=== PATIENT | female | born 1955 | race African-American/Black ===

== ENCOUNTER → 2018-08-07 | Day surgery (SDC) | payer OTHER ==
--- NOTE | 2018-08-08 17:57 | OP ---
DATE OF OPERATION: 08/07/2018 PREOPERATIVE DIAGNOSIS: Left breast mass 1 o'clock to 2 o'clock, 8-10 cm from the nipple and left axillary suspicious lymph node. POSTOPERATIVE DIAGNOSIS: Left breast mass 1 o'clock to 2 o'clock, 8-10 cm from the nipple and left axillary suspicious lymph node. PROCEDURE: Left ultrasound-guided core biopsies of left axillary node and left breast mass with clip placement. ANESTHESIA: Local. ATTENDING SURGEON: Kirk Smith MD ESTIMATED BLOOD LOSS: Minimal. COMPLICATIONS: None. DESCRIPTION OF PROCEDURE: The patient was made aware of the risks and benefits of the procedure and consented. She was placed in a supine position. Under sterile conditions with 1% lidocaine for local anesthesia, a small sean was made in the left axilla. Using a 13-gauge suction biopsy device via an inferior approach, multiple cores were obtained and submitted to Pathology. Likewise, under ultrasound guidance, a Hydroclip barrel-shaped clip was placed into the residual lymph node. Well tolerated by patient. Steri-Strips and a sterile bandage was applied. The left breast mass was then approached. Under sterile conditions with 1% lidocaine for local anesthesia, a small sean was made in the skin. Using a 13-gauge suction biopsy device via lateral approach under ultrasound guidance, multiple cores were obtained and submitted to Pathology. Likewise, under ultrasound guidance, a U-shaped clip was placed into the biopsy resolution. Well tolerated by patient. Steri-Strips and a sterile bandage was applied. We will contact her with the results. We will contact her with results. KIRK SMITH M.D. [id number]
--- NOTE | 2018-08-09 16:21 | PATH ---
Surgical Pathology Report Patient Name: BRET SU [facility]. Rec. #: [id number] /Age/Gender: 1955 (Age: 63) / F Account: [id number] Location: [facility] Taken: 08/07/2018 Received: 08/08/2018 Reported: 08/09/2018 Physicians: Jaciel Alvarado M.D. Specimen(s) Received A: LEFT BREAST 1-2:00 8-10 CM FN CORE BX B: LEFT AXILLARY LYMPH NODE CORE BX Clinical History left breast and left axillary node biopsy Final Diagnosis A. BREAST, LEFT, 1:00-2:00, 8-10 CM FN, CORE BIOPSY: INVASIVE LOBULAR CARCINOMA, PLEOMORPHIC TYPE WITH HISTIOCYTOID FEATURES, MEASURING AT LEAST 1.1 CM IN GREATEST DIMENSION IN THIS MATERIAL. (SEE NOTE) FOCAL DUCTAL CARCINOMA IN SITU (DCIS), CRIBRIFORM TYPE, LOW NUCLEAR GRADE. Note: Immunostains performed at [facility] show the following results: the tumor cells are positive for AE1/3 and negative for E-Cadherin. These findings support the diagnosis. B. LYMPH NODE, LEFT AXILLARY, CORE BIOPSY: METASTATIC CARCINOMA INVOLVING LYMPH NODE. Results of ER and LA studies performed on block A at [facility] are as follows: ER (clone [id number] mouse monoclonal antibody by [employer]): ~60 % nuclear staining with moderate intensity (positive). LA (clone16 mouse monoclonal antibody by [employer]): 0 % nuclear staining intensity (negative). Results of Her2 & Ki67 studies will be reported separately in an addendum. Positive and negative controls (internal if applicable) show appropriate results. Formalin fixation time is within current ASCO/CAP recommendations for ER, LA and Her2 testing. Time to formalin fixation (cold ischemic time) is not given. Electronically Signed Jenae Villanueva M.D. Addendum Reported: 08/14/2018 Addendum Diagnosis Results of Her2 (IHC) & Ki-67 studies performed at [place], [place] ([id number]) are as follows: Her2 IHC (EP3 from [employer], formerly known as [id number], using Peter Polymer Refine detection kit):0 (negative). Ki-67: 5-7% (low proliferative index). Positive and negative controls (internal if applicable) show appropriate results. Jenae Villanueva M.D. Addendum Reported: 09/25/2018 Addendum Diagnosis Results of ER and LA studies performed on block B (left axillary lymph node) at [facility] are as follows: ER (clone [id number] mouse monoclonal antibody by [employer]): ~80 % nuclear staining with moderate to strong intensity (Positive). LA (clone16 mouse monoclonal antibody by [employer]): 0 % nuclear staining (Negative). Results of Her2 (IHC) & Ki-67 studies performed on block B at [place], [place] ([id number]) are as follows: Her2 IHC (EP3 from [employer], formerly known as [id number], using Peter Polymer Refine detection kit):1+ (negative). Ki-67: ~25% (intermediate proliferative index). Positive and negative controls (internal if applicable) show appropriate results. Formalin fixation and cold ischemic times are within current ASCO/CAP recommendations for ER, LA and Her2 testing. Jenae Villanueva M.D. Gross Description A. Received in formalin labeled "left breast biopsy 1:00-2:00, 8-10 cmfn," is a 1.6 x 0.9 x 0.2 cm aggregate of multiple watts-yellow, irregular to cylindrical portions of fibroadipose tissue admixed with blood clot. The formalin is filtered and the specimen is entirely submitted in one cassette. B. Received in formalin labeled "left axillary lymph node," is a 2.3 x 1.7 x 0.3 cm aggregate of multiple watts-yellow, irregular to cylindrical portions of fibroadipose tissue. The formalin is filtered and the specimen is entirely submitted in one cassette. Time to formalin fixation: Not given (presumed immediate) Total formalin fixation time: Approximately 26 hours 08/08/201808/08/2018
== END | disposition home or self-care (01) ==
LOC: FRADUS-SUR 13:20
PROVIDERS: ATTEND Surgery Surgical Oncology
PROC: 0HBU3ZX Excision of Left Breast, Percutaneous Approach, Diagnostic (ICD-10-PCS; principal; 2018-08-07)
PROC: 07B63ZX Excision of Left Axillary Lymphatic, Percutaneous Approach, Diagnostic (ICD-10-PCS; 2018-08-07)
PROC: BH47ZZZ Ultrasonography of Upper Extremity (ICD-10-PCS; 2018-08-07)
DX: C50.912 Malignant neoplasm of unspecified site of left female breast (principal); Z17.0 Estrogen receptor positive status [ER+]; C77.3 Secondary and unspecified malignant neoplasm of axilla and upper limb lymph nodes; N63.21 Unspecified lump in the left breast, upper outer quadrant; R59.0 Localized enlarged lymph nodes
CPT/HCPCS: 19083; 76942-TC; 87899; 88305-TC; 88341-TC; 88342-TC; A4648

== ENCOUNTER 2018-09-13 07:30 | Day surgery (SDC) | payer OTHER ==
[2018-09-12 18:10] VITALS: BMI 22.7
[2018-09-13 08:04] VITALS: TEMP 97.4
[2018-09-13 08:06] LABS: BASO % 0.9 % (0-2.0); EOS % 0.8 % (0-4.5); HEMATOCRIT 42.2 % (32.4-45.2); HEMOGLOBIN 13.8 GM/dL (10.7-15.3); LYMPH % 26.4 % (8-40); MCH 30.3 pg (25.7-33.7); MCHC 32.8 g/dl (32.0-36.0); MEAN CELL VOLUME 92.4 fl (80-96); MEAN PLT VOLUME 7.4 fl (7.5-11.1); MONO % 8.4 % (3.8-10.2); NEUT % 63.5 % (42.8-82.8); PLATELET COUNT 281 K/MM3 (134-434); RBC 4.57 M/mm3 (3.60-5.2); WHITE BLOOD COUNT 7.7 K/mm3 (4.0-10.0)
[2018-09-13 08:18] LABS: INR 1.01 (0.83-1.09); PROTHROMBIN TIME (PATIENT) 11.9 SEC (9.7-13.0)
[2018-09-13 13:24] VITALS: BP 126/77; PULSE 71
== END 2018-09-13 16:39 | disposition home or self-care (01) ==
LOC: JRADIR 07:30
PROVIDERS: ATTEND Internal Medicine Hematology & Oncology
PROC: 0JH63XZ Insertion of Tunneled Vascular Access Device into Chest Subcutaneous Tissue and Fascia, Percutaneous Approach (ICD-10-PCS; principal; 2018-09-13)
DX: C50.919 Malignant neoplasm of unspecified site of unspecified female breast (principal)
CPT/HCPCS: 36561; C1788; 36415; 77001-TC-FY; 85025; 85610

== ENCOUNTER 2018-09-15 07:22 | Day surgery (SDC) | payer OTHER | END 2018-09-15 15:35 | disposition home or self-care (01) | LOC: JONCCHEMO 07:22 → J7W 10:38 → JONCCHEMO 15:35 ==

== ENCOUNTER 2018-09-16 11:30 | Day surgery (SDC) | payer OTHER | END 2018-09-16 14:24 | disposition home or self-care (01) | LOC: JONCCHEMO 11:30 → J7W 11:30 → JONCCHEMO 14:24 ==

== ENCOUNTER 2018-09-29 06:49 | Day surgery (SDC) | payer OTHER ==
[2018-09-29] MEDS ORDERED: SODIUM CHLORIDE 250 ML IV ONE ×2 (09:00→11:00)
[2018-09-29 09:23] LABS: BASO % 0.4 % (0-2.0); EOS % 0.1 % (0-4.5); HEMATOCRIT 38.9 % (32.4-45.2); HEMOGLOBIN 12.8 GM/dL (10.7-15.3); LYMPH % 13.7 % (8-40); MCH 30.2 pg (25.7-33.7); MEAN CELL VOLUME 91.4 fl (80-96); MONO % 8.1 % (3.8-10.2); NEUT % 77.7 % (42.8-82.8); PLATELET COUNT 156 K/MM3 (134-434); RBC 4.25 M/mm3 (3.60-5.2); RDW 12.8 % (11.6-15.6); WHITE BLOOD COUNT 13.1 K/mm3 (4.0-10.0)
[2018-09-29] MEDS ORDERED: FOSAPREPITANT DIMEGLUMINE 150 MG in SODIUM CHLORIDE 145 ML IVPB ONE (09:30)
[2018-09-29] MEDS ORDERED: PALONOSETRON HCL 0.25 MG/5 ML VIAL IVPUSH ONE (09:30)
[2018-09-29] MEDS ORDERED: DEXAMETHASONE SODIUM PHOSPHATE 10 MG in SODIUM CHLORIDE 50 ML IVPB ONE (09:30)
[2018-09-29 09:49] LABS: ALBUMIN 3.5 g/dl (3.4-5.0); BILIRUBIN,TOTAL 0.2 mg/dL (0.2-1); BLOOD UREA NITROGEN 14.6 mg/dL (7-18); CREATININE 1.1 mg/dL (0.55-1.3); MAGNESIUM 2.5 mg/dL (1.8-2.4); POTASSIUM 3.8 mmol/L (3.5-5.1); TOT PROT 6.5 g/dl (6.4-8.2)
[2018-09-29] MEDS ORDERED: SODIUM CHLORIDE IV ONE (10:00)
[2018-09-29] MEDS ORDERED: DOXORUBICIN HCL IV ONE (10:00)
[2018-09-29] MEDS ORDERED: SODIUM CHLORIDE IVPB ONE (10:30)
[2018-09-29] MEDS ORDERED: CYCLOPHOSPHAMIDE IVPB ONE (10:30)
[2018-09-29 10:40] LABS: ANISOCYTOSIS 0; MACROCYTOSIS 0; PLATELET ESTIMATE DECREASED
[2018-09-29 14:10] VITALS: TEMP 97.8
[2018-09-29] MEDS ORDERED: PORTA CATH FLUSH 10 ML IVPUSH ONE (14:10)
[2018-09-29 15:20] VITALS: BP 136/74; PULSE 69
== END 2018-09-29 15:22 | disposition home or self-care (01) ==
LOC: JONCCHEMO 06:49 → J7W 10:34 → JONCCHEMO 15:22
PROVIDERS: ATTEND Internal Medicine Hematology & Oncology
DX: Z51.11 Encounter for antineoplastic chemotherapy (principal); C50.919 Malignant neoplasm of unspecified site of unspecified female breast
CPT/HCPCS: 36415; 80053; 83735; 85025; 96361; 96367; 96375; 96413; 96417; J1453; J2469; J9070

== ENCOUNTER 2018-09-30 14:04 | Day surgery (SDC) | payer OTHER ==
[~2018-09-30 14:04] MED LIST: PEGFILGRASTIM 6 MG/0.6 ML DISP.SYRIN SQ ONE
[2018-09-30 15:27] VITALS: BP 119/62; PULSE 69; TEMP 98
== END 2018-09-30 15:45 | disposition home or self-care (01) ==
LOC: JONCCHEMO 14:04 → J7W 14:05 → JONCCHEMO 15:45
PROVIDERS: ATTEND Internal Medicine Hematology & Oncology
PROC: 3E013GC Introduction of Other Therapeutic Substance into Subcutaneous Tissue, Percutaneous Approach (ICD-10-PCS; principal; 2018-09-30)
DX: C50.919 Malignant neoplasm of unspecified site of unspecified female breast (principal); Z76.89 Persons encountering health services in other specified circumstances
CPT/HCPCS: J2505

== ENCOUNTER 2018-10-13 08:15 | Day surgery (SDC) | payer OTHER ==
[2018-10-13] MEDS ORDERED: SODIUM CHLORIDE 250 ML IV ONE ×2 (09:00→11:00)
[2018-10-13] MEDS ORDERED: FOSAPREPITANT DIMEGLUMINE 150 MG in SODIUM CHLORIDE 145 ML IVPB ONE (09:30)
[2018-10-13] MEDS ORDERED: PALONOSETRON HCL 0.25 MG/5 ML VIAL IVPUSH ONE (09:30)
[2018-10-13] MEDS ORDERED: DEXAMETHASONE SODIUM PHOSPHATE 10 MG in SODIUM CHLORIDE 50 ML IVPB ONE (09:30)
[2018-10-13] MEDS ORDERED: DOXORUBICIN HCL IV ONE (10:00)
[2018-10-13] MEDS ORDERED: SODIUM CHLORIDE IV ONE (10:00)
[2018-10-13 10:28] LABS: BASO % 0.3 % (0-2.0); HEMATOCRIT 35.7 % (32.4-45.2); HEMOGLOBIN 11.6 GM/dL (10.7-15.3); LYMPH % 12.9 % (8-40); MCHC 32.6 g/dl (32.0-36.0); MEAN CELL VOLUME 92.1 fl (80-96); MEAN PLT VOLUME 7.5 fl (7.5-11.1); MONO % 8.8 % (3.8-10.2); PLATELET COUNT 302 K/MM3 (134-434); RBC 3.87 M/mm3 (3.60-5.2); RDW 13.2 % (11.6-15.6); WHITE BLOOD COUNT 12.4 K/mm3 (4.0-10.0)
[2018-10-13 10:30] LABS: ALBUMIN 3.6 g/dl (3.4-5.0); BILIRUBIN,DIRECT 0.1 mg/dL (0.0-0.2); BILIRUBIN,TOTAL 0.3 mg/dL (0.2-1); BLOOD UREA NITROGEN 11.6 mg/dL (7-18); CALCIUM 8.9 mg/dL (8.5-10.1); CREATININE 1.1 mg/dL (0.55-1.3); MAGNESIUM 2.4 mg/dL (1.8-2.4); TOT PROT 6.6 g/dl (6.4-8.2)
[2018-10-13] MEDS ORDERED: CYCLOPHOSPHAMIDE INJECTION 1,040 MG in SODIUM CHLORIDE 250 ML IVPB ONE (10:30)
[2018-10-13] MEDS ORDERED: CYCLOPHOSPHAMIDE IVPB ONE (11:30)
[2018-10-13] MEDS ORDERED: SODIUM CHLORIDE IVPB ONE (11:30)
[2018-10-13 16:03] VITALS: TEMP 96.9
[2018-10-13 16:12] VITALS: BP 102/65; PULSE 64
[2018-10-13] MEDS ORDERED: PORTA CATH FLUSH 10 ML IVPUSH ONE (16:13)
== END 2018-10-13 15:45 | disposition home or self-care (01) ==
LOC: JONCCHEMO 08:15 → J7W 10:48 → JONCCHEMO 15:45
PROVIDERS: ATTEND Internal Medicine Hematology & Oncology
DX: Z51.11 Encounter for antineoplastic chemotherapy (principal); C50.919 Malignant neoplasm of unspecified site of unspecified female breast
CPT/HCPCS: 36415; 80053; 80076; 83735; 85025; 96361; 96367; 96375; 96413; 96417; J1453; J2469; J9070

== ENCOUNTER 2018-10-14 09:27 | Day surgery (SDC) | payer OTHER ==
[2018-10-14 11:05] VITALS: BP 115/63; PULSE 80; TEMP 97.1
== END 2018-10-14 14:29 | disposition home or self-care (01) ==
LOC: J7W 09:27 → JONCCHEMO 09:27
PROVIDERS: ATTEND Internal Medicine Hematology & Oncology
PROC: 3E013GC Introduction of Other Therapeutic Substance into Subcutaneous Tissue, Percutaneous Approach (ICD-10-PCS; principal; 2018-10-14)
DX: C50.919 Malignant neoplasm of unspecified site of unspecified female breast (principal); Z76.89 Persons encountering health services in other specified circumstances
CPT/HCPCS: J2505

== ENCOUNTER 2018-10-20 06:20 | Day surgery (SDC) | payer OTHER ==
[2018-10-20] MEDS ORDERED: SODIUM CHLORIDE 500 ML IV STA (10:20)
[2018-10-20 10:24] LABS: HEMOGLOBIN 10.3 GM/dL (10.7-15.3)
[2018-10-20 10:48] LABS: ALBUMIN 3.5 g/dl (3.4-5.0); BILIRUBIN,TOTAL 0.6 mg/dL (0.2-1); BLOOD UREA NITROGEN 16.4 mg/dL (7-18); CALCIUM 8.7 mg/dL (8.5-10.1); CREATININE 0.9 mg/dL (0.55-1.3); POTASSIUM 3.9 mmol/L (3.5-5.1); TOT PROT 6.2 g/dl (6.4-8.2)
[2018-10-20 10:53] LABS: BASO % 1.3 % (0-2.0); EOS % 0.4 % (0-4.5); HEMATOCRIT 30.4 % (32.4-45.2); LYMPH % 25.8 % (8-40); MCH 30.9 pg (25.7-33.7); MCHC 33.9 g/dl (32.0-36.0); MEAN CELL VOLUME 91.2 fl (80-96); MEAN PLT VOLUME 8.8 fl (7.5-11.1); NEUT % 67.5 % (42.8-82.8); PLATELET COUNT 146 K/MM3 (134-434); RBC 3.33 M/mm3 (3.60-5.2); RDW 13.7 % (11.6-15.6)
[2018-10-20] MEDS ORDERED: BACITRACIN 15 GM TUBE TOPICAL OINTMENT TP ONE (11:30)
[2018-10-20 13:52] LABS: ANISOCYTOSIS 1+; MACROCYTOSIS 0; PLATELET ESTIMATE NORMAL
[2018-10-20 14:59] VITALS: TEMP 97.9
[2018-10-20 15:03] VITALS: BP 115/74; PULSE 64
[2018-10-20] MEDS ORDERED: PORTA CATH FLUSH 10 ML IVPUSH ONE (15:15)
--- NOTE | 2018-10-20 19:10 | HP ---
Satellite H - Chief Complaint Chief Complaint: Here for follow up of after C3 AC. No fevers/ cough/ abdominal pain/diarrhea/urinary symptoms History Source: Patient Limitations to Obtaining History: No Limitations - Past Medical History Allergies/Adverse Reactions: Allergies Allergy/AdvReac Type Severity Reaction Status Date / Time No Known Allergies Allergy Verified 09/13/18 08:06 - Current Medications Current Medications: Home Medications Medication Instructions Recorded Compazine 10 mg PO ASDIR PRN 10/13/18 Ondansetron 8 mg PO PRN PRN 10/13/18 Pantoprazole Sodium 40 mg PO DAILY 10/13/18 Loperamide HCl [Loperamide] 2 mg PO PRN 10/20/18 Satellite Physical Exam - Physical Examination Vital Signs: Vital Signs Period Temp Pulse Resp BP Sys/Marcus Pulse Ox Last 24 Hr 97.9 F-97.9 F 63-64 16-20 107-115/71-74 General Appearance: Well Nourished, Alert & Oriented x3 Lung: Clear to auscultation, Normal air movement Heart: Regular rate & rhythm, Normal S1, Normal S2 Abdomen: Soft, No tenderness, Normal bowel sounds Extremities: No edema Neurological: Intact Satellite Impression/Plan - Impression/Plan Impression: 63 y/o patient with left breast cancer. On neoadjuvant ddAC followed by taxol
== END 2018-10-20 12:55 | disposition home or self-care (01) ==
LOC: JONCCHEMO 06:20 → J7W 09:56 → JONCCHEMO 12:55
PROVIDERS: ATTEND Internal Medicine Hematology & Oncology
PROC: 3E0437Z Introduction of Electrolytic and Water Balance Substance into Central Vein, Percutaneous Approach (ICD-10-PCS; principal; 2018-10-20)
DX: C50.919 Malignant neoplasm of unspecified site of unspecified female breast (principal); Z76.89 Persons encountering health services in other specified circumstances
CPT/HCPCS: 36415; 80053; 85025; 96361

== ENCOUNTER 2018-10-30 07:07 | Day surgery (SDC) | payer OTHER ==
[2018-10-30] MEDS ORDERED: SODIUM CHLORIDE 250 ML IV ONE ×2 (09:00→11:30)
[2018-10-30 09:29] LABS: HEMATOCRIT 35.5 % (32.4-45.2); HEMOGLOBIN 11.7 GM/dL (10.7-15.3); LYMPH % 8.4 % (8-40); MCH 30.4 pg (25.7-33.7); MCHC 32.9 g/dl (32.0-36.0); MEAN CELL VOLUME 92.3 fl (80-96); MONO % 7.7 % (3.8-10.2); NEUT % 82.9 % (42.8-82.8); PLATELET COUNT 278 K/MM3 (134-434); RBC 3.84 M/mm3 (3.60-5.2); RDW 14.8 % (11.6-15.6); WHITE BLOOD COUNT 10.3 K/mm3 (4.0-10.0)
[2018-10-30] MEDS ORDERED: DEXAMETHASONE SODIUM PHOSPHATE 10 MG in SODIUM CHLORIDE 50 ML IVPB ONE (10:00)
[2018-10-30] MEDS ORDERED: FOSAPREPITANT DIMEGLUMINE 150 MG in SODIUM CHLORIDE 150 ML IVPB ONE (10:00)
[2018-10-30] MEDS ORDERED: PALONOSETRON HCL 0.25 MG/5 ML VIAL IVPUSH ONE (10:00)
[2018-10-30 10:09] LABS: ALBUMIN 3.8 g/dl (3.4-5.0); BILIRUBIN,DIRECT 0.1 mg/dL (0.0-0.2); BILIRUBIN,TOTAL 0.2 mg/dL (0.2-1); BLOOD UREA NITROGEN 14.4 mg/dL (7-18); CREATININE 1.1 mg/dL (0.55-1.3); MAGNESIUM 2.6 mg/dL (1.8-2.4); POTASSIUM 3.9 mmol/L (3.5-5.1); TOT PROT 6.6 g/dl (6.4-8.2)
[2018-10-30] MEDS ORDERED: DOXORUBICIN HCL IV ONE (10:30)
[2018-10-30] MEDS ORDERED: SODIUM CHLORIDE IV ONE (10:30)
[2018-10-30] MEDS ORDERED: CYCLOPHOSPHAMIDE IVPB ONE (11:00)
[2018-10-30] MEDS ORDERED: SODIUM CHLORIDE IVPB ONE (11:00)
[2018-10-30 12:41] LABS: ANISOCYTOSIS 1+; MACROCYTOSIS 1+; OVALOCYTE 1+; PLATELET ESTIMATE NORMAL; TEAR DROP CELLS 1+
[2018-10-30 16:20] VITALS: TEMP 97.4
[2018-10-30] MEDS ORDERED: PORTA CATH FLUSH 10 ML IVPUSH ONE (16:20)
[2018-10-30 16:21] VITALS: BP 114/78; PULSE 57
[2018-10-31] MEDS ORDERED: PEGFILGRASTIM 6 MG/0.6 ML DISP.SYRIN SQ ONE (11:00)
== END 2018-10-30 15:20 | disposition home or self-care (01) ==
LOC: JONCCHEMO 07:07 → J7W 10:43 → JONCCHEMO 15:20
PROVIDERS: ATTEND Internal Medicine Hematology & Oncology
DX: Z51.11 Encounter for antineoplastic chemotherapy (principal); C50.919 Malignant neoplasm of unspecified site of unspecified female breast
CPT/HCPCS: 36415; 80048; 80076; 83735; 85025; 96361; 96367; 96375; 96409; 96413; J1453; J2469; J9070

== ENCOUNTER 2018-10-31 07:05 | Day surgery (SDC) | payer OTHER ==
[2018-10-31] MEDS ORDERED: PEGFILGRASTIM 6 MG/0.6 ML DISP.SYRIN SQ ONE (10:00)
[2018-10-31 17:53] VITALS: BP 100/58; PULSE 64; TEMP 96.9
== END 2018-10-31 13:30 | disposition home or self-care (01) ==
LOC: JONCCHEMO 07:05 → J7W 11:54 → JONCCHEMO 13:30
PROVIDERS: ATTEND Internal Medicine Hematology & Oncology
PROC: 3E013GC Introduction of Other Therapeutic Substance into Subcutaneous Tissue, Percutaneous Approach (ICD-10-PCS; principal; 2018-10-31)
DX: C50.919 Malignant neoplasm of unspecified site of unspecified female breast (principal); Z76.89 Persons encountering health services in other specified circumstances
CPT/HCPCS: J2505

== ENCOUNTER 2018-11-15 07:18 | Day surgery (SDC) | payer OTHER | END 2018-11-15 15:45 | disposition home or self-care (01) | LOC: JONCCHEMO 07:18 → J7W 10:46 → JONCCHEMO 15:45 ==

== ENCOUNTER 2018-11-22 07:10 | Day surgery (SDC) | payer OTHER ==
[2018-11-22] MEDS ORDERED: DEXAMETHASONE SODIUM PHOSPHATE 10 MG, ONDANSETRON INJECTION 8 MG, DIPHENHYDRAMINE 50 MG... IVPB ONE (09:30)
[2018-11-22] MEDS ORDERED: FAMOTIDINE 20 MG/50 ML IVPB 20 MG/50 ML MG IVPB ONE (09:30)
[2018-11-22 09:33] LABS: BASO % 1.3 % (0-2.0); EOS % 0.1 % (0-4.5); HEMATOCRIT 34.7 % (32.4-45.2); HEMOGLOBIN 11.6 GM/dL (10.7-15.3); LYMPH % 14.9 % (8-40); MCH 30.8 pg (25.7-33.7); MCHC 33.4 g/dl (32.0-36.0); MEAN CELL VOLUME 92.2 fl (80-96); MEAN PLT VOLUME 8.2 fl (7.5-11.1); MONO % 12.7 % (3.8-10.2); PLATELET COUNT 339 K/MM3 (134-434); RBC 3.76 M/mm3 (3.60-5.2); RDW 15.9 % (11.6-15.6); WHITE BLOOD COUNT 3.8 K/mm3 (4.0-10.0)
[2018-11-22] MEDS ORDERED: DEXAMETHASONE SOD PHOSPHATE 10 MG/1 ML VIAL IVPB ONE (09:55)
[2018-11-22] MEDS ORDERED: ONDANSETRON 4 MG/2 ML VIAL IVPB ONE (09:56)
[2018-11-22] MEDS ORDERED: PACLITAXEL 138 MG in SODIUM CHLORIDE 250 ML IVPB ONE (10:00)
[2018-11-22 10:07] LABS: ALBUMIN 3.9 g/dl (3.4-5.0); BILIRUBIN,DIRECT 0.2 mg/dL (0.0-0.2); BILIRUBIN,TOTAL 0.5 mg/dL (0.2-1); BLOOD UREA NITROGEN 17.9 mg/dL (7-18); CALCIUM 9.7 mg/dL (8.5-10.1); MAGNESIUM 2.4 mg/dL (1.8-2.4); POTASSIUM 3.4 mmol/L (3.5-5.1); TOT PROT 6.6 g/dl (6.4-8.2)
[2018-11-22] MEDS ORDERED: POTASSIUM CHLORIDE ORAL LIQUID 20 MEQ/15 ML PO ONE (10:22)
[2018-11-22] MEDS ORDERED: DEXAMETHASONE SODIUM PHOSPHATE 10 MG, ONDANSETRON INJECTION 8 MG, DIPHENHYDRAMINE 25 MG... IVPB ONE (11:00)
[2018-11-22 14:52] VITALS: TEMP 97.5
[2018-11-22 15:09] VITALS: BP 102/76; PULSE 70
[2018-11-22] MEDS ORDERED: PORTA CATH FLUSH 10 ML IVPUSH ONE (15:09)
== END 2018-11-22 14:00 | disposition home or self-care (01) ==
LOC: JONCCHEMO 07:10 → J7W 10:03 → JONCCHEMO 14:00
PROVIDERS: ATTEND Internal Medicine Hematology & Oncology
DX: Z51.11 Encounter for antineoplastic chemotherapy (principal); C50.919 Malignant neoplasm of unspecified site of unspecified female breast
CPT/HCPCS: 36415; 80048; 80076; 83735; 85025; 96367; 96375; 96413; J2405

== ENCOUNTER 2018-11-29 06:53 | Day surgery (SDC) | payer OTHER ==
[2018-11-29] MEDS ORDERED: DEXAMETHASONE SODIUM PHOSPHATE 10 MG, DIPHENHYDRAMINE 25 MG, ONDANSETRON INJECTION 8 MG... IVPB ONE (09:30)
[2018-11-29] MEDS ORDERED: FAMOTIDINE 20 MG/50 ML IVPB 20 MG/50 ML MG IVPB ONE (09:30)
[2018-11-29 09:58] LABS: EOS % 0.8 % (0-4.5); HEMATOCRIT 32.4 % (32.4-45.2); HEMOGLOBIN 10.7 GM/dL (10.7-15.3); LYMPH % 19.9 % (8-40); MCH 30.7 pg (25.7-33.7); MCHC 32.9 g/dl (32.0-36.0); MEAN CELL VOLUME 93.2 fl (80-96); MONO % 12.2 % (3.8-10.2); NEUT % 66.1 % (42.8-82.8); PLATELET COUNT 297 K/MM3 (134-434); RBC 3.48 M/mm3 (3.60-5.2); RDW 16.6 % (11.6-15.6)
[2018-11-29] MEDS ORDERED: PACLITAXEL 138 MG in SODIUM CHLORIDE 250 ML IVPB ONE (10:00)
[2018-11-29 10:30] LABS: ALBUMIN 3.8 g/dl (3.4-5.0); BILIRUBIN,DIRECT 0.1 mg/dL (0.0-0.2); BILIRUBIN,TOTAL 0.4 mg/dL (0.2-1); BLOOD UREA NITROGEN 18.2 mg/dL (7-18); CALCIUM 9.4 mg/dL (8.5-10.1); MAGNESIUM 2.5 mg/dL (1.8-2.4); POTASSIUM 3.5 mmol/L (3.5-5.1); TOT PROT 6.5 g/dl (6.4-8.2)
[2018-11-29 15:50] VITALS: BP 118/83; TEMP 97.8
[2018-11-29] MEDS ORDERED: PORTA CATH FLUSH 10 ML IVPUSH ONE (15:50)
[2018-11-29 15:51] VITALS: PULSE 58
== END 2018-11-29 13:54 | disposition home or self-care (01) ==
LOC: JONCCHEMO 06:53 → J7W 10:46 → JONCCHEMO 13:54
PROVIDERS: ATTEND Internal Medicine Hematology & Oncology
PROC: 3E04305 Introduction of Other Antineoplastic into Central Vein, Percutaneous Approach (ICD-10-PCS; principal; 2018-11-29)
PROC: 3E043GC Introduction of Other Therapeutic Substance into Central Vein, Percutaneous Approach (ICD-10-PCS; 2018-11-29)
DX: Z51.11 Encounter for antineoplastic chemotherapy (principal); C50.412 Malignant neoplasm of upper-outer quadrant of left female breast; Z17.0 Estrogen receptor positive status [ER+]
CPT/HCPCS: 36415; 80048; 80076; 83735; 85025; 96367; 96375; 96413; J2405

== ENCOUNTER → 2018-12-01 | Day surgery (SDC) | payer OTHER ==
[2018-12-01 09:45] LABS: BASO % 1.4 % (0-2.0); EOS % 0.3 % (0-4.5); HEMATOCRIT 29.7 % (32.4-45.2); LYMPH % 12.4 % (8-40); MCH 31.3 pg (25.7-33.7); MCHC 33.8 g/dl (32.0-36.0); MEAN CELL VOLUME 92.6 fl (80-96); MEAN PLT VOLUME 8.2 fl (7.5-11.1); MONO % 5.9 % (3.8-10.2); PLATELET COUNT 234 K/MM3 (134-434); RBC 3.21 M/mm3 (3.60-5.2); RDW 17.3 % (11.6-15.6); WHITE BLOOD COUNT 3.8 K/mm3 (4.0-10.0)
== END | disposition home or self-care (01) ==
LOC: JONCCHEMO 07:02
PROVIDERS: ATTEND Internal Medicine Hematology & Oncology
DX: Z53.8 Procedure and treatment not carried out for other reasons (principal)
CPT/HCPCS: 36415; 85025

== ENCOUNTER 2018-12-06 07:12 | Day surgery (SDC) | payer OTHER ==
[2018-12-06 09:24] LABS: BASO % 0.7 % (0-2.0); EOS % 1.3 % (0-4.5); HEMATOCRIT 30.2 % (32.4-45.2); HEMOGLOBIN 10.1 GM/dL (10.7-15.3); LYMPH % 20.2 % (8-40); MCH 31.3 pg (25.7-33.7); MCHC 33.6 g/dl (32.0-36.0); MEAN CELL VOLUME 93.3 fl (80-96); MEAN PLT VOLUME 7.4 fl (7.5-11.1); MONO % 11.3 % (3.8-10.2); NEUT % 66.5 % (42.8-82.8); PLATELET COUNT 262 K/MM3 (134-434); RBC 3.23 M/mm3 (3.60-5.2); RDW 16.8 % (11.6-15.6); WHITE BLOOD COUNT 3.3 K/mm3 (4.0-10.0)
[2018-12-06] MEDS ORDERED: FAMOTIDINE 20 MG/50 ML IVPB 20 MG/50 ML MG IVPB ONE (09:30)
[2018-12-06] MEDS ORDERED: DEXAMETHASONE SODIUM PHOSPHATE 10 MG, DIPHENHYDRAMINE 25 MG, ONDANSETRON INJECTION 8 MG... IVPB ONE (09:30)
[2018-12-06 09:58] LABS: ALBUMIN 3.6 g/dl (3.4-5.0); BILIRUBIN,DIRECT 0.1 mg/dL (0.0-0.2); BILIRUBIN,TOTAL 0.4 mg/dL (0.2-1); BLOOD UREA NITROGEN 8.9 mg/dL (7-18); CALCIUM 9.4 mg/dL (8.5-10.1); CREATININE 0.8 mg/dL (0.55-1.3); MAGNESIUM 2.3 mg/dL (1.8-2.4); POTASSIUM 3.8 mmol/L (3.5-5.1); TOT PROT 6.1 g/dl (6.4-8.2)
[2018-12-06] MEDS ORDERED: PACLITAXEL 138 MG in SODIUM CHLORIDE 250 ML IVPB ONE (10:00)
[2018-12-06] MEDS ORDERED: PORTA CATH FLUSH 10 ML IVPUSH ONE (13:35)
[2018-12-06 13:36] VITALS: TEMP 97.9
[2018-12-06 13:37] VITALS: BP 114/74; PULSE 66
== END 2018-12-06 13:15 | disposition home or self-care (01) ==
LOC: JONCCHEMO 07:12 → J7W 10:19 → JONCCHEMO 13:15
PROVIDERS: ATTEND Internal Medicine Hematology & Oncology
DX: Z51.11 Encounter for antineoplastic chemotherapy (principal); C50.412 Malignant neoplasm of upper-outer quadrant of left female breast; Z17.0 Estrogen receptor positive status [ER+]
CPT/HCPCS: 36415; 80048; 80076; 83735; 85025; 96367; 96375; 96413; J2405

== ENCOUNTER 2018-12-13 08:33 | Day surgery (SDC) | payer OTHER ==
[2018-12-13] MEDS ORDERED: FAMOTIDINE 20 MG/50 ML IVPB 20 MG/50 ML MG IVPB ONE (10:00)
[2018-12-13] MEDS ORDERED: DEXAMETHASONE SODIUM PHOSPHATE 8 MG, ONDANSETRON INJECTION 8 MG, DIPHENHYDRAMINE 25 MG ... IVPB ONE (10:00)
[2018-12-13 10:30] LABS: BASO % 0.8 % (0-2.0); HEMATOCRIT 30.9 % (32.4-45.2); HEMOGLOBIN 10.2 GM/dL (10.7-15.3); MCH 31.4 pg (25.7-33.7); MCHC 33.2 g/dl (32.0-36.0); MEAN CELL VOLUME 94.6 fl (80-96); MEAN PLT VOLUME 7.6 fl (7.5-11.1); MONO % 10.4 % (3.8-10.2); NEUT % 67.8 % (42.8-82.8); PLATELET COUNT 255 K/MM3 (134-434); RBC 3.26 M/mm3 (3.60-5.2); RDW 17.3 % (11.6-15.6); WHITE BLOOD COUNT 3.3 K/mm3 (4.0-10.0)
[2018-12-13] MEDS ORDERED: PACLITAXEL 138 MG in SODIUM CHLORIDE 250 ML IVPB ONE (10:30)
[2018-12-13 11:05] LABS: ALBUMIN 3.6 g/dl (3.4-5.0); BILIRUBIN,DIRECT 0.1 mg/dL (0.0-0.2); BILIRUBIN,TOTAL 0.4 mg/dL (0.2-1); BLOOD UREA NITROGEN 14.8 mg/dL (7-18); CALCIUM 9.2 mg/dL (8.5-10.1); CREATININE 0.8 mg/dL (0.55-1.3); MAGNESIUM 2.3 mg/dL (1.8-2.4); POTASSIUM 3.7 mmol/L (3.5-5.1); TOT PROT 6.3 g/dl (6.4-8.2)
[2018-12-13 16:58] VITALS: BP 104/70; PULSE 72; TEMP 97.8
[2018-12-13] MEDS ORDERED: PORTA CATH FLUSH 10 ML IVPUSH ONE (16:58)
== END 2018-12-13 13:40 | disposition home or self-care (01) ==
LOC: JONCCHEMO 08:33 → J7W 10:35 → JONCCHEMO 13:40
PROVIDERS: ATTEND Internal Medicine Hematology & Oncology
PROC: 3E04305 Introduction of Other Antineoplastic into Central Vein, Percutaneous Approach (ICD-10-PCS; principal; 2018-12-13)
PROC: 3E043GC Introduction of Other Therapeutic Substance into Central Vein, Percutaneous Approach (ICD-10-PCS; 2018-12-13)
DX: Z51.11 Encounter for antineoplastic chemotherapy (principal); C50.412 Malignant neoplasm of upper-outer quadrant of left female breast; Z17.0 Estrogen receptor positive status [ER+]
CPT/HCPCS: 36415; 80048; 80076; 83735; 85025; 96367; 96375; 96413

== ENCOUNTER 2018-12-20 05:35 | Day surgery (SDC) | payer OTHER ==
[2018-12-20 09:02] LABS: BASO % 0.6 % (0-2.0); EOS % 1.2 % (0-4.5); HEMOGLOBIN 10.5 GM/dL (10.7-15.3); LYMPH % 23.3 % (8-40); MCH 31.4 pg (25.7-33.7); MCHC 32.9 g/dl (32.0-36.0); MEAN CELL VOLUME 95.3 fl (80-96); MEAN PLT VOLUME 7.7 fl (7.5-11.1); MONO % 12.3 % (3.8-10.2); NEUT % 62.6 % (42.8-82.8); PLATELET COUNT 232 K/MM3 (134-434); RBC 3.36 M/mm3 (3.60-5.2); RDW 16.8 % (11.6-15.6); WHITE BLOOD COUNT 2.7 K/mm3 (4.0-10.0)
[2018-12-20 09:38] LABS: ALBUMIN 3.6 g/dl (3.4-5.0); BILIRUBIN,DIRECT 0.1 mg/dL (0.0-0.2); BILIRUBIN,TOTAL 0.4 mg/dL (0.2-1); BLOOD UREA NITROGEN 15.9 mg/dL (7-18); CALCIUM 9.4 mg/dL (8.5-10.1); CREATININE 0.8 mg/dL (0.55-1.3); MAGNESIUM 2.1 mg/dL (1.8-2.4); POTASSIUM 3.9 mmol/L (3.5-5.1); TOT PROT 6.4 g/dl (6.4-8.2)
[2018-12-20] MEDS ORDERED: FAMOTIDINE 20 MG/50 ML IVPB 20 MG/50 ML MG IVPB ONE (10:00)
[2018-12-20] MEDS ORDERED: DEXAMETHASONE SODIUM PHOSPHATE 8 MG, ONDANSETRON INJECTION 8 MG, DIPHENHYDRAMINE 25 MG ... IVPB ONE (10:00)
[2018-12-20] MEDS ORDERED: PACLITAXEL 132 MG in SODIUM CHLORIDE 250 ML IVPB ONE (10:30)
[2018-12-20 17:50] VITALS: BP 133/88; PULSE 71; TEMP 98.4
[2018-12-20] MEDS ORDERED: PORTA CATH FLUSH 10 ML IVPUSH ONE (17:51)
== END 2018-12-20 13:37 | disposition home or self-care (01) ==
LOC: JONCCHEMO 05:35 → J7W 09:37 → JONCCHEMO 13:37
PROVIDERS: ATTEND Internal Medicine Hematology & Oncology
DX: Z51.11 Encounter for antineoplastic chemotherapy (principal); C50.412 Malignant neoplasm of upper-outer quadrant of left female breast; Z17.0 Estrogen receptor positive status [ER+]
CPT/HCPCS: 36415; 80048; 80076; 83735; 85025; 96367; 96375; 96413

== ENCOUNTER 2018-12-27 07:54 | Day surgery (SDC) | payer OTHER ==
[2018-12-27] MEDS ORDERED: [UNRECOGNIZED DRUG - OTHER] IVPB ONE (09:00)
[2018-12-27] MEDS ORDERED: FAMOTIDINE 20 MG/50 ML IVPB 20 MG/50 ML MG IVPB ONE (09:00)
[2018-12-27] MEDS ORDERED: DIPHENHYDRAMINE IVPB ONE (09:00)
[2018-12-27] MEDS ORDERED: ONDANSETRON IVPB ONE (09:00)
[2018-12-27] MEDS ORDERED: DEXAMETHASONE IVPB ONE (09:00)
[2018-12-27] MEDS ORDERED: PACLITAXEL 132 MG in SODIUM CHLORIDE 250 ML IVPB ONE (09:30)
[2018-12-27 11:27] LABS: BASO % 0.4 % (0-2.0); EOS % 1.3 % (0-4.5); HEMATOCRIT 31.7 % (32.4-45.2); HEMOGLOBIN 10.4 GM/dL (10.7-15.3); LYMPH % 28.5 % (8-40); MCH 31.9 pg (25.7-33.7); MCHC 32.9 g/dl (32.0-36.0); MEAN PLT VOLUME 7.3 fl (7.5-11.1); MONO % 13.3 % (3.8-10.2); NEUT % 56.5 % (42.8-82.8); PLATELET COUNT 274 K/MM3 (134-434); RBC 3.27 M/mm3 (3.60-5.2); RDW 17.1 % (11.6-15.6); WHITE BLOOD COUNT 4.2 K/mm3 (4.0-10.0)
[2018-12-27 11:52] LABS: ALBUMIN 3.6 g/dl (3.4-5.0); BILIRUBIN,DIRECT 0.1 mg/dL (0.0-0.2); BILIRUBIN,TOTAL 0.4 mg/dL (0.2-1); BLOOD UREA NITROGEN 14.8 mg/dL (7-18); CALCIUM 9.4 mg/dL (8.5-10.1); CREATININE 0.7 mg/dL (0.55-1.3); MAGNESIUM 2.3 mg/dL (1.8-2.4); POTASSIUM 4.2 mmol/L (3.5-5.1); TOT PROT 6.5 g/dl (6.4-8.2)
[2018-12-27 17:08] VITALS: BP 122/78; PULSE 81; TEMP 97.7
[2018-12-27] MEDS ORDERED: PORTA CATH FLUSH 10 ML IVPUSH ONE (17:08)
== END 2018-12-27 15:15 | disposition home or self-care (01) ==
LOC: JONCCHEMO 07:54 → J7W 11:16 → JONCCHEMO 15:15
PROVIDERS: ATTEND Internal Medicine Hematology & Oncology
DX: Z51.11 Encounter for antineoplastic chemotherapy (principal); C50.412 Malignant neoplasm of upper-outer quadrant of left female breast; Z17.0 Estrogen receptor positive status [ER+]
CPT/HCPCS: 36415; 80048; 80076; 83735; 85025; 96367; 96375; 96413; J1100; J2405

== ENCOUNTER 2019-01-03 05:30 | Day surgery (SDC) | payer OTHER ==
[2019-01-03] MEDS ORDERED: DIPHENHYDRAMINE IVPB ONE (09:00)
[2019-01-03] MEDS ORDERED: ONDANSETRON IVPB ONE (09:00)
[2019-01-03] MEDS ORDERED: [UNRECOGNIZED DRUG - OTHER] IVPB ONE (09:00)
[2019-01-03] MEDS ORDERED: FAMOTIDINE 20 MG/50 ML IVPB 20 MG/50 ML MG IVPB ONE (09:00)
[2019-01-03] MEDS ORDERED: DEXAMETHASONE IVPB ONE (09:00)
[2019-01-03] MEDS ORDERED: PACLITAXEL 132 MG in SODIUM CHLORIDE 250 ML IVPB ONE (09:30)
[2019-01-03 09:34] LABS: BASO % 0.7 % (0-2.0); EOS % 0.8 % (0-4.5); HEMATOCRIT 33.6 % (32.4-45.2); HEMOGLOBIN 10.9 GM/dL (10.7-15.3); LYMPH % 22.9 % (8-40); MCH 31.5 pg (25.7-33.7); MCHC 32.5 g/dl (32.0-36.0); MEAN CELL VOLUME 96.9 fl (80-96); MEAN PLT VOLUME 7.4 fl (7.5-11.1); NEUT % 63.6 % (42.8-82.8); PLATELET COUNT 302 K/MM3 (134-434); RBC 3.47 M/mm3 (3.60-5.2); RDW 16.4 % (11.6-15.6); WHITE BLOOD COUNT 3.3 K/mm3 (4.0-10.0)
[2019-01-03 10:02] LABS: ALBUMIN 3.7 g/dl (3.4-5.0); BILIRUBIN,DIRECT 0.1 mg/dL (0.0-0.2); BILIRUBIN,TOTAL 0.5 mg/dL (0.2-1); BLOOD UREA NITROGEN 23.3 mg/dL (7-18); CALCIUM 9.6 mg/dL (8.5-10.1); CREATININE 0.9 mg/dL (0.55-1.3); MAGNESIUM 2.3 mg/dL (1.8-2.4); POTASSIUM 3.7 mmol/L (3.5-5.1); TOT PROT 6.6 g/dl (6.4-8.2)
[2019-01-03 14:14] VITALS: TEMP 97.8
[2019-01-03 14:15] VITALS: BP 116/79; PULSE 75
== END 2019-01-03 13:20 | disposition home or self-care (01) ==
LOC: JONCCHEMO 05:30 → J7W 10:30 → JONCCHEMO 13:20
PROVIDERS: ATTEND Internal Medicine Hematology & Oncology
DX: Z51.11 Encounter for antineoplastic chemotherapy (principal); C50.412 Malignant neoplasm of upper-outer quadrant of left female breast; Z17.0 Estrogen receptor positive status [ER+]
CPT/HCPCS: 36415; 80048; 80076; 83735; 85025; 96367; 96375; 96413; J1100

== ENCOUNTER 2019-01-10 08:52 | Day surgery (SDC) | payer OTHER ==
[2019-01-10] MEDS ORDERED: FAMOTIDINE 20 MG/50 ML IVPB 20 MG/50 ML MG IVPB ONE (09:30)
[2019-01-10] MEDS ORDERED: DEXAMETHASONE SODIUM PHOSPHATE 8 MG, ONDANSETRON INJECTION 8 MG, DIPHENHYDRAMINE 25 MG ... IVPB ONE (09:30)
[2019-01-10] MEDS ORDERED: PACLITAXEL 132 MG in SODIUM CHLORIDE 250 ML IVPB ONE (10:00)
[2019-01-10 11:10] LABS: BASO % 0.5 % (0-2.0); EOS % 0.5 % (0-4.5); HEMATOCRIT 32.7 % (32.4-45.2); HEMOGLOBIN 10.8 GM/dL (10.7-15.3); LYMPH % 33.4 % (8-40); MCH 31.8 pg (25.7-33.7); MCHC 33.1 g/dl (32.0-36.0); MEAN CELL VOLUME 96.1 fl (80-96); MEAN PLT VOLUME 8.1 fl (7.5-11.1); MONO % 10.6 % (3.8-10.2); PLATELET COUNT 275 K/MM3 (134-434); RDW 15.4 % (11.6-15.6); WHITE BLOOD COUNT 3.3 K/mm3 (4.0-10.0)
[2019-01-10 11:44] LABS: ALBUMIN 3.6 g/dl (3.4-5.0); BILIRUBIN,TOTAL 0.3 mg/dL (0.2-1); BLOOD UREA NITROGEN 19.2 mg/dL (7-18); CALCIUM 9.4 mg/dL (8.5-10.1); CREATININE 0.8 mg/dL (0.55-1.3); POTASSIUM 4.3 mmol/L (3.5-5.1); TOT PROT 6.4 g/dl (6.4-8.2)
[2019-01-10] MEDS ORDERED: PORTA CATH FLUSH 10 ML IVPUSH ONE (15:34)
[2019-01-10 15:35] VITALS: BP 120/81; PULSE 76; TEMP 97.4
== END 2019-01-10 14:15 | disposition home or self-care (01) ==
LOC: JONCCHEMO 08:52 → J7W 08:53 → JONCCHEMO 14:15
PROVIDERS: ATTEND Internal Medicine Hematology & Oncology
DX: Z51.11 Encounter for antineoplastic chemotherapy (principal); C50.412 Malignant neoplasm of upper-outer quadrant of left female breast; Z17.0 Estrogen receptor positive status [ER+]
CPT/HCPCS: 36415; 80053; 83735; 85025; 96367; 96375; 96413; J2405

== ENCOUNTER 2019-01-17 07:27 | Day surgery (SDC) | payer OTHER ==
[2019-01-17] MEDS ORDERED: DEXAMETHASONE SODIUM PHOSPHATE 8 MG, ONDANSETRON INJECTION 8 MG, DIPHENHYDRAMINE 25 MG ... IVPB ONE (09:30)
[2019-01-17] MEDS ORDERED: FAMOTIDINE 20 MG/50 ML IVPB 20 MG/50 ML MG IVPB ONE (09:30)
[2019-01-17 09:51] LABS: BASO % 0.4 % (0-2.0); EOS % 0.6 % (0-4.5); HEMATOCRIT 34.4 % (32.4-45.2); HEMOGLOBIN 11.4 GM/dL (10.7-15.3); LYMPH % 25.2 % (8-40); MCHC 33.2 g/dl (32.0-36.0); MEAN CELL VOLUME 96.4 fl (80-96); MEAN PLT VOLUME 7.4 fl (7.5-11.1); MONO % 10.3 % (3.8-10.2); NEUT % 63.5 % (42.8-82.8); PLATELET COUNT 263 K/MM3 (134-434); RBC 3.57 M/mm3 (3.60-5.2); RDW 15.6 % (11.6-15.6); WHITE BLOOD COUNT 4.2 K/mm3 (4.0-10.0)
[2019-01-17] MEDS ORDERED: PACLITAXEL 132 MG in SODIUM CHLORIDE 250 ML IVPB ONE (10:00)
[2019-01-17 10:40] LABS: ALBUMIN 3.8 g/dl (3.4-5.0); BILIRUBIN,TOTAL 0.3 mg/dL (0.2-1); BLOOD UREA NITROGEN 15.6 mg/dL (7-18); CALCIUM 8.7 mg/dL (8.5-10.1); CREATININE 0.9 mg/dL (0.55-1.3); POTASSIUM 3.7 mmol/L (3.5-5.1); TOT PROT 6.5 g/dl (6.4-8.2)
[2019-01-17 14:58] VITALS: BP 124/78; PULSE 76; TEMP 98.1
[2019-01-17] MEDS ORDERED: PORTA CATH FLUSH 10 ML IVPUSH ONE (14:59)
== END 2019-01-17 14:15 | disposition home or self-care (01) ==
LOC: JONCCHEMO 07:27 → J7W 10:31 → JONCCHEMO 14:15
PROVIDERS: ATTEND Internal Medicine Hematology & Oncology
PROC: 3E04305 Introduction of Other Antineoplastic into Central Vein, Percutaneous Approach (ICD-10-PCS; principal; 2019-01-17)
PROC: 3E043GC Introduction of Other Therapeutic Substance into Central Vein, Percutaneous Approach (ICD-10-PCS; 2019-01-17)
DX: Z51.11 Encounter for antineoplastic chemotherapy (principal); C50.412 Malignant neoplasm of upper-outer quadrant of left female breast; Z17.0 Estrogen receptor positive status [ER+]
CPT/HCPCS: 36415; 80053; 83735; 85025; 96367; 96375; 96413; J2405

== ENCOUNTER 2019-01-24 07:10 | Day surgery (SDC) | payer OTHER ==
[2019-01-24 09:18] LABS: BASO % 0.8 % (0-2.0); EOS % 0.3 % (0-4.5); HEMATOCRIT 36.4 % (32.4-45.2); HEMOGLOBIN 12.1 GM/dL (10.7-15.3); MCH 32.3 pg (25.7-33.7); MCHC 33.2 g/dl (32.0-36.0); MEAN CELL VOLUME 97.3 fl (80-96); MEAN PLT VOLUME 8.2 fl (7.5-11.1); MONO % 8.3 % (3.8-10.2); NEUT % 70.6 % (42.8-82.8); PLATELET COUNT 239 K/MM3 (134-434); RBC 3.74 M/mm3 (3.60-5.2); RDW 15.1 % (11.6-15.6); WHITE BLOOD COUNT 3.6 K/mm3 (4.0-10.0)
[2019-01-24] MEDS ORDERED: FAMOTIDINE 20 MG/50 ML IVPB 20 MG/50 ML MG IVPB ONE (09:30)
[2019-01-24] MEDS ORDERED: DEXAMETHASONE SODIUM PHOSPHATE 8 MG, ONDANSETRON INJECTION 8 MG, DIPHENHYDRAMINE 25 MG ... IVPB ONE (09:30)
[2019-01-24 09:46] LABS: ALBUMIN 3.8 g/dl (3.4-5.0); BILIRUBIN,TOTAL 0.2 mg/dL (0.2-1); BLOOD UREA NITROGEN 17.1 mg/dL (7-18); CALCIUM 9.4 mg/dL (8.5-10.1); MAGNESIUM 2.1 mg/dL (1.8-2.4); POTASSIUM 3.9 mmol/L (3.5-5.1); TOT PROT 6.6 g/dl (6.4-8.2)
[2019-01-24] MEDS ORDERED: PACLITAXEL 132 MG in SODIUM CHLORIDE 250 ML IVPB ONE (10:00)
[2019-01-24 17:00] VITALS: BP 124/68; PULSE 77; TEMP 98.1
[2019-01-24] MEDS ORDERED: PORTA CATH FLUSH 10 ML IVPUSH ONE (17:00)
== END 2019-01-24 12:52 | disposition home or self-care (01) ==
LOC: JONCCHEMO 07:10 → J7W 10:11 → JONCCHEMO 12:52
PROVIDERS: ATTEND Internal Medicine Hematology & Oncology
PROC: 3E0 Administration, Physiological Systems and Anatomical Regions, Introduction (ICD-10-PCS; principal; 2019-01-24)
DX: Z51.11 Encounter for antineoplastic chemotherapy (principal); C50.412 Malignant neoplasm of upper-outer quadrant of left female breast; Z17.0 Estrogen receptor positive status [ER+]
CPT/HCPCS: 36415; 80053; 83735; 85025; 96367; 96375; 96413; J2405

== ENCOUNTER 2019-02-02 06:05 | Day surgery (SDC) | payer OTHER ==
[2019-02-02 09:21] VITALS: TEMP 97.7
[2019-02-02] MEDS ORDERED: FAMOTIDINE 20 MG/50 ML IVPB 20 MG/50 ML MG IVPB ONE (09:30)
[2019-02-02] MEDS ORDERED: DEXAMETHASONE SODIUM PHOSPHATE 8 MG, ONDANSETRON INJECTION 8 MG, DIPHENHYDRAMINE 25 MG ... IVPB ONE (09:30)
[2019-02-02 09:39] LABS: BASO % 0.6 % (0-2.0); EOS % 0.4 % (0-4.5); HEMATOCRIT 37.2 % (32.4-45.2); HEMOGLOBIN 12.2 GM/dL (10.7-15.3); LYMPH % 20.9 % (8-40); MCH 31.4 pg (25.7-33.7); MCHC 32.8 g/dl (32.0-36.0); MEAN CELL VOLUME 95.7 fl (80-96); MEAN PLT VOLUME 7.7 fl (7.5-11.1); MONO % 9.9 % (3.8-10.2); NEUT % 68.2 % (42.8-82.8); PLATELET COUNT 263 K/MM3 (134-434); RBC 3.89 M/mm3 (3.60-5.2); RDW 15.2 % (11.6-15.6); WHITE BLOOD COUNT 4.4 K/mm3 (4.0-10.0)
[2019-02-02] MEDS ORDERED: PACLITAXEL 132 MG in SODIUM CHLORIDE 250 ML IVPB ONE (10:00)
[2019-02-02 10:08] LABS: ALBUMIN 3.7 g/dl (3.4-5.0); BILIRUBIN,TOTAL 0.4 mg/dL (0.2-1); BLOOD UREA NITROGEN 9.8 mg/dL (7-18); CALCIUM 9.4 mg/dL (8.5-10.1); CREATININE 0.9 mg/dL (0.55-1.3); POTASSIUM 3.9 mmol/L (3.5-5.1); TOT PROT 6.4 g/dl (6.4-8.2)
[2019-02-02] MEDS ORDERED: PORTA CATH FLUSH 10 ML IVPUSH ONE (10:45)
[2019-02-02 13:10] VITALS: BP 144/90; PULSE 93
== END 2019-02-02 12:55 | disposition home or self-care (01) ==
LOC: JONCCHEMO 06:05 → J7W 10:04 → JONCCHEMO 12:55
PROVIDERS: ATTEND Internal Medicine Hematology & Oncology
DX: Z51.11 Encounter for antineoplastic chemotherapy (principal); C50.412 Malignant neoplasm of upper-outer quadrant of left female breast; Z17.0 Estrogen receptor positive status [ER+]
CPT/HCPCS: 36415; 80053; 83735; 85025; 96365; 96367; 96413; J2405

== ENCOUNTER 2019-03-06 07:19 | Day surgery (SDC) | payer OTHER ==
[2019-03-01 14:48] VITALS: BMI 22.6
--- NOTE | 2019-03-05 09:47 | HP ---
Admitting History and Physical - Primary Care Physician PCP: Kirk Smith - Admission Chief Complaint: Left breast cancer History of Present Illness: 64 year old postmenapausal female with left breast mass associated with nipple discharge She refused mammogram . US showed 4.2x3.6x1.8cm irregular mass at 2: 00 8 to 10 cm FN. In axilla there was 2 abnormal lymph nodes largest 1 cm. Mammogram and Right US showed no other abnormalities. US core bx Left breast revealed invasive lobular carcinoma ER+/MN/her2 negative with pleomorphic calcifications and axillary mets. She just finished chemotherapy with Dr Schwarz. Breast MRI showed left breast complete imaging response to neoadjuvant chemotherapy and lymph node appears to be normal in size. 12/26/2018. History Source: Patient Limitations to Obtaining History: No Limitations - Past Surgical History Past Surgical History: Yes: - Smoking History Smoking history: Never smoked - Alcohol/Substance Use Hx Alcohol Use: No Home Medications - Allergies Allergies/Adverse Reactions: Allergies Allergy/AdvReac Type Severity Reaction Status Date / Time No Known Allergies Allergy Verified 03/01/19 14:40 - Home Medications Home Medications: Ambulatory Orders Pantoprazole Sodium 40 mg PO DAILY 03/01/19 Family Medical History Family History: Denies Physical Examination Constitutional: Yes: Well Nourished Breast(s): Yes: Other (Breast: right negative left resolution left mass and node ) Problem List - Problems (1) Breast cancer, left breast Code(s): C50.912 - MALIGNANT NEOPLASM OF UNSPECIFIED SITE OF LEFT FEMALE BREAST Qualifiers: Breast location: upper outer quadrant of breast Estrogen receptor status: positive Patient sex: female Qualified Code(s): C50.412 - Malignant neoplasm of upper-outer quadrant of left female breast; Z17.0 - Estrogen receptor positive status [ER+] Assessment/Plan Left breast wide excision with mammogram needle localization and axillary US localization of axillary node, Lymphoscintogram,sentenl node biopsy possible axillary node dissection
[2019-03-06] MEDS ORDERED: ISOSULFAN BLUE 10 MG/ML VIAL SQ ONE (11:06)
[2019-03-06] MEDS ORDERED: LIDOCAINE HCL 1%, 10 MG/ML (20ML VIAL) ONE (11:06)
[2019-03-06] MEDS ORDERED: BUPIVACAINE HCL/PF 0.5% (5MG/ML) 10 ML VIAL ONE (11:07)
[2019-03-06] MEDS ORDERED: KETOROLAC TROMETHAMINE 30 MG/1 ML VIAL IVPUSH PRN (12:02)
[2019-03-06] MEDS ORDERED: MIDAZOLAM HCL 2 MG/2 ML SINGLE DOSE VIAL ONE (12:02)
[2019-03-06] MEDS ORDERED: ONDANSETRON 4 MG/2 ML VIAL IVPUSH PRN ×2 (12:02→14:38)
[2019-03-06] MEDS ORDERED: DEXTROSE 5%-0.45% SALINE 1,000 ML IV SCH (12:15)
[2019-03-06] MEDS ORDERED: ceFAZolin SODIUM 1 GM VIAL ONE (12:31)
[2019-03-06] MEDS ORDERED: DEXAMETHASONE SOD PHOSPHATE 4 MG/1 ML VIAL ONE (12:39)
[2019-03-06] MEDS ORDERED: ONDANSETRON 4 MG/2 ML VIAL ONE ×2 (12:39→14:16)
[2019-03-06] MEDS ORDERED: ePHEDrine SULFATE 50 MG/1 ML AMPULE ONE (13:04)
[2019-03-06] MEDS ORDERED: oxyCODONE HCL 5 MG TABLET PO PRN (14:38)
[2019-03-06] MEDS ORDERED: KETOROLAC TROMETHAMINE 30 MG/1 ML VIAL ONE (14:41)
[2019-03-06] MEDS ORDERED: LACTATED RINGERS SOLUTION 1,000 ML IV SCH (14:45)
[2019-03-06 15:51] VITALS: TEMP 97.6
[2019-03-06 17:02] VITALS: BP 119/83; PULSE 84
--- NOTE | 2019-03-06 17:13 | OP ---
DATE OF OPERATION: 03/06/2019 PREOPERATIVE DIAGNOSIS: Left breast cancer status post neoadjuvant chemotherapy with marisa metastases. POSTOPERATIVE DIAGNOSIS: Left breast cancer status post neoadjuvant chemotherapy with marisa metastases. PROCEDURE: Left partial mastectomy with targeted left sentinel node biopsy. ANESTHESIA: General intubated. ATTENDING SURGEON: Kaiser Smith M.D. CRIME LABORATORY ANALYST: Danielle Underwood ESTIMATED BLOOD LOSS: Minimal. COMPLICATIONS: None. DESCRIPTION OF PROCEDURE: Patient was made aware of the risks and benefits of the procedure and consented. She was placed into a supine position after going through radiology, where a needle was placed next to the indexed lesion in the breast as well as in the axilla under ultrasound, and patient had injections of nuclear tracer. She was then placed in the supine position on the operating room table, and after general anesthesia was induced, the patient was intubated. The operative site was prepped and draped in the usual sterile fashion. Then 3 mL of 1% isosulfan blue were locally infiltrated into the subareolar tissues manual compression. A curvilinear incision was made in the upper left axilla. Using blunt and sharp dissection, tissues were dissected to reveal a cluster of blue hot lymph nodes that were surgically excised. In addition, there was a lymph node that the needle and wire went into; this is surgically excised and submitted as well. Unfortunately, the specimen radiograph did not show the clip; however, a frozen section was reported as no evidence of metastases. Additional lymph nodes were taken totaling approximately 8, all of which are frozen sectioned. There was no evidence of metastases, although we did not find the clip despite extensive investigation. Since there was treatment artifact and a significant amount of negative nodes, I elected to not continue removing lymph nodes. The wound was copiously irrigated with normal saline. Hemostasis maintained by electrocautery. The wound was closed with deep 3-0 Vicryl followed by a running subcuticular 4-0 Monocryl. The breast was then approached. A radial incision was made in the upper outer quadrant. Using electrocautery, the skin flaps were made to the wire. The needle was withdrawn to the puncture site and were sharply excised and submitted with a short suture superior, long suture lateral. Specimen radiographs confirmed the presence of the indexed lesion. This is submitted for permanent sectioning. Additional segments were taken superior, inferior, medial, lateral, deep, and anterior with clips at the new margin. The wounds were copiously with normal saline, hemostasis maintained by electrocautery. Breast tissue was taken off the pectoralis muscle and chest wall laterally and rotated into the defect and closed with multiple layers of [id number] suture of 2-0 Vicryl. Skin was then closed with interrupted 3-0 Vicryl followed by running subcuticular 4-0 Monocryl. Steri-Strips, sterile dressing, and a compression bra were then applied, and the patient having tolerated the procedure was transferred to the recovery room in excellent condition. KAISER SMITH M.D. [id number]
== END 2019-03-06 16:45 | disposition home or self-care (01) ==
LOC: FASU 07:19
PROVIDERS: ATTEND Surgery Surgical Oncology
PROC: 0HBU0ZZ Excision of Left Breast, Open Approach (ICD-10-PCS; principal; 2019-03-06 12:42)
PROC: 0JX60ZC Transfer Chest Subcutaneous Tissue and Fascia with Skin, Subcutaneous Tissue and Fascia, Open Approach (ICD-10-PCS; 2019-03-06 12:42)
DX: C50.412 Malignant neoplasm of upper-outer quadrant of left female breast (principal); Z17.0 Estrogen receptor positive status [ER+]
CPT/HCPCS: 19281; 78195-TC; 94760; A9541

== ENCOUNTER 2020-06-11 11:32 | Emergency (ER) | payer OTHER ==
[2020-06-11 11:44] VITALS: BP 138/68; PULSE 78; TEMP 97.8; BMI 24.2
[2020-06-11] MEDS ORDERED: BACITRACIN 0.9 GM PACKET ONE (12:09)
== END 2020-06-11 12:37 | disposition home or self-care (01) ==
LOC: JERFT 11:32
DX: Z48.00 Encounter for change or removal of nonsurgical wound dressing (principal)
CPT/HCPCS: 99284-25

== ENCOUNTER → 2020-12-22 | Day surgery (SDC) | payer OTHER ==
[2020-12-22 10:46] LABS: INR 0.93 (0.83-1.09); PROTHROMBIN TIME (PATIENT) 11.3 SEC (9.7-13.0)
== END | disposition home or self-care (01) ==
LOC: JRADIR 09:15
PROVIDERS: ATTEND Internal Medicine Hematology & Oncology
PROC: 0JPT0WZ Removal of Totally Implantable Vascular Access Device from Trunk Subcutaneous Tissue and Fascia, Open Approach (ICD-10-PCS; principal; 2020-12-22)
DX: Z45.2 Encounter for adjustment and management of vascular access device (principal)
CPT/HCPCS: 36415; 36590; 85610

== ENCOUNTER 2022-12-11 16:42 | Emergency (ER) | payer OTHER ==
[2022-12-11 17:16] VITALS: BP 131/79; RESP 18; TEMP 98.2; BMI 34.1
[2022-12-11] MEDS ORDERED: MIDAZOLAM HCL 5 MG/1 ML Single Dose Vial IM ONE (19:04)
[2022-12-11] MEDS ORDERED: MIDAZOLAM HCL 5 MG/1 ML Single Dose Vial ONE (19:50)
[2022-12-11 20:00] VITALS: PULSE 83
[2022-12-11 21:03] LABS: URINE APPEARANCE CLEAR; URINE BILIRUBIN NEGATIVE (NEGATIVE); URINE COLOR YELLOW; URINE GLUCOSE (UA) 3+ (NEGATIVE); URINE KETONE TRACE (NEGATIVE); URINE LEUK ESTERASE NEGATIVE (NEGATIVE); URINE NITRITE NEGATIVE (NEGATIVE); URINE PROTEIN TRACE (NEGATIVE)
[2022-12-11 22:51] LABS: POTASSIUM 3.9 mmol/L (3.5-5.1)
[2022-12-11 22:53] LABS: CALCIUM 9.4 mg/dL (8.5-10.1)
[2022-12-11 22:54] LABS: ALBUMIN 3.6 g/dl (3.4-5.0); BLOOD UREA NITROGEN 11.8 mg/dL (7-18)
[2022-12-11 22:57] LABS: CREATININE 1.1 mg/dL (0.55-1.3)
[2022-12-11 22:59] LABS: BILIRUBIN,TOTAL 0.2 mg/dL (0.2-1); TOT PROT 7.3 g/dl (6.4-8.2)
== END 2022-12-11 23:52 | disposition home or self-care (01) ==
LOC: JER 16:42
PROC: 3E023GC Introduction of Other Therapeutic Substance into Muscle, Percutaneous Approach (ICD-10-PCS; principal; 2022-12-11)
DX: R31.9 Hematuria, unspecified (principal)
CPT/HCPCS: 36415; 76830-TC; 80053; 81003; 87086; 96372; 99284-25